=== PATIENT | male | born 1965 | race Hispanic/Latino ===

== ENCOUNTER 2017-09-02 07:34 | Outpatient (CLI) | payer OTHER ==
--- NOTE | 2017-09-02 08:07 | XRay Report ---
XRAY LEFT KNEE 4 THREE VIEWS: 09/02/17 CLINICAL: Knee pain. FINDINGS: Moderate osteopenia. Medial joint space narrowing with small osteophytes. Slight widening of the lateral joint space with osteophytes. Small patellofemoral joint osteophytes.No joint effusion.Normal soft tissues. IMPRESSION: Osteoarthritis with greater involvement of the medial joint space and patellofemoral joint.
== END 2017-09-02 07:35 | disposition home or self-care (01) ==
LOC: SPVIMAG 07:34
PROVIDERS: ATTEND Orthopaedic Surgery
DX: M17.12 Unilateral primary osteoarthritis, left knee (principal); M85.862 Other specified disorders of bone density and structure, left lower leg